=== PATIENT | male | born 1945 | race Caucasian/White ===

== ENCOUNTER 2017-08-24 17:26 | Emergency (ER) | payer OTHER ==
[2017-08-24 17:32] VITALS: TEMP 97.6; BMI 29.8
--- NOTE | 2017-08-24 18:25 | PDOC ---
History of Present Illness - General Chief Complaint: Weakness Stated Complaint: WEAKNESS & BILATERAL LEG SWELLING Time Seen by Provider: 08/24/17 18:19 - History of Present Illness Initial Comments: 08/24/17 18:38 The patient is a 72 year old male with a history of CAD and prostate ca who presents for evaluation of fatigue and lower extremity swelling. The patient is accompanied by family who assist in providing the history. They note worsening lower extremity swelling and fatigue over the past 1 week prompting the patient's presentation to the ED for further evaluation. The patient is visiting from out of town and does not follow with a primary physician. The patient presented for similar symptoms 2 years ago and was medically cleared at that time and discharged home. They otherwise denies fevers, chills, SOB, chest pain, nausea, vomiting, abdominal pain, or changes with urination or bowel movements. Past History - Past Medical History Allergies/Adverse Reactions: Allergies Allergy/AdvReac Type Severity Reaction Status Date / Time No Known Allergies Allergy Verified 08/24/17 17:29 Home Medications: Ambulatory Orders NK [No Known Home Medication] 08/24/17 Cancer: Yes (PROSTATE) Cardiac Disorders: Yes COPD: No - Surgical History Appendectomy: Yes Cholecystectomy: Yes - Suicide/Smoking/Psychosocial Hx Smoking History: Never smoked Have you smoked in the past 12 months: No Hx Alcohol Use: No Substance Use Type: None Review of Systems - Review of Systems Comments:: 08/24/17 18:53 Constitutional: Fatigue. No fevers, chills, malaise HEENT: No Rhinorrhea, nasal congestion, visual changes Cardiovascular: No chest pain, syncope, palpitations, lightheadedness Respiratory: No Cough, SOB, Hemoptysis, Gastrointestinal: No Abdominal pain, Nausea, Vomiting, Constipation, Diarrhea, Melena Genitourinary: No Dysuria, Frequency, Urgency, Hesitancy, Hematuria, Flank pain Musculoskeletal: No Myalgia, arthralgia Skin: Lower Extremity Swelling. No rashes, itching, bruising, pallor Neurologic: No Headache, Dizziness, Numbness, Weakness, or Tingling Psychiatric: No Hallucinations. No SI or HI *Physical Exam - Vital Signs Last Vital Signs Temp Pulse Resp BP Pulse Ox 97.6 F 75 19 116/78 100 08/24/17 17:30 08/24/17 17:30 08/24/17 17:30 08/24/17 17:30 08/24/17 17:30 - Physical Exam Comments: 08/24/17 18:53 General Appearance: Nourished. No Apparent Distress HEENT: EOMI, CONOR. No Pharyngeal Erythema, Tonsillar Exudate, Tonsillar Erythema Neck: No Cervical Lymphadenopathy Respiratory/Chest: Lungs Clear, Normal Breath Sounds. No Crackles, Rales, Rhonchi, Wheezing Cardiovascular: Regular Rhythm, Regular Rate. No Murmur, Gallops, Rubs Gastrointestinal/Abdominal: Normal Bowel Sounds, Soft. No Guarding, Rebound, Tenderness Musculoskeletal: No CVA Tenderness Extremity: 2+ pitting edema bilaterally on exam. Normal Capillary Refill Integumentary: Normal Color, Dry, Warm Neurologic: Fully Oriented, Alert, Normal Mood/Affect, Normal Response, Heart Score/ECG Review #1 ECG reviewed & interpreted by me at: 20:43 General ECG Interpretation: Sinus Rhythm, Normal Rate, Normal Intervals, No acute ischemic changes ED Treatment Course - LABORATORY CBC & Chemistry Diagram: 08/24/17 18:31 08/24/17 18:31 - RADIOLOGY Radiology Studies Ordered: Category Date Time Status DUPLEX VASCUL US-2LEGS [US] Stat Ultrasound 08/24/17 18:25 Ordered Medical Decision Making - Medical Decision Making 08/24/17 19:05 The patient is a 72 year old male with a history of CAD and prostate ca who presents for evaluation of fatigue and lower extremity swelling. Differential includes but is not limited to: DVT, Infectious, Metabolic Derangement. Given the patient's history, we will obtain a cbc, cmp, ekg, DVT US to evaluate further. We will continue to monitor and reassess while here in the ED. 08/24/17 20:42 CBC, CMP are unremarkable. DVT US is unremarkable. We are comfortable discharging the patient home at this time with primary care provider follow up. The patient's symptoms are likely due to dependent edema. We discussed the results, plan, and return precautions with the patient and his family who voiced understanding and is agreeable with the plan. *DC/Admit/Observation/Transfer Diagnosis at time of Disposition: Edema Qualifiers: Edema type: unspecified Qualified Code(s): R60.9 - Edema, unspecified - Discharge Dispostion Disposition: HOME Condition at time of disposition: Stable Decision to Admit order: No - Referrals Referrals: Marvin,Rocael, MD [Staff Physician] - - Patient Instructions Printed Discharge Instructions: DI for Dependent Edema Additional Instructions: Please return to the ER if you experience concerning or worsening symptoms including worsening fatigue, pain, or fevers. Your lab results and imagine studies were normal here in the ER. It is important that you call to schedule a follow up appointment with your primary care provider within 2-3 days to discuss you ER visit and further management of your symptoms. - Post Discharge Activity
[2017-08-24 18:40] LABS: BASO % 0.9 % (0-2.0); EOS % 6.6 % (0-4.5); HEMATOCRIT 39.1 % (35.4-49); HEMOGLOBIN 13.1 GM/dL (11.7-16.9); LYMPH % 31.9 % (8-40); MCH 29.5 pg (25.7-33.7); MCHC 33.4 g/dl (32.0-35.9); MEAN CELL VOLUME 88.4 fl (80-96); MEAN PLT VOLUME 8.9 fl (7.5-11.1); MONO % 7.4 % (3.8-10.2); NEUT % 53.2 % (42.8-82.8); PLATELET COUNT 283 K/MM3 (134-434); RBC 4.43 M/mm3 (4.00-5.60); RDW 14.1 % (11.9-15.9); WHITE BLOOD COUNT 6.5 K/mm3 (4.0-10.0)
[2017-08-24 19:02] LABS: ALBUMIN 3.6 g/dl (3.4-5.0); ANION GAP 5 (8-16); BLOOD UREA NITROGEN 16 mg/dL (7-18); CALCIUM 8.4 mg/dL (8.5-10.1); CHLORIDE 110 mmol/L (98-107); CO2 29 mmol/L (21-32); GLUCOSE,RANDOM 122 mg/dL (74-106); SGOT/AST 12 U/L (15-37); SGPT/ALT 20 U/L (12-78); SODIUM 144 mmol/L (136-145)
[2017-08-24 19:03] LABS: ALK PHOS 88 U/L (45-117); BILIRUBIN,TOTAL 0.5 mg/dL (0.2-1.0); TOT PROT 6.3 g/dl (6.4-8.2)
--- NOTE | 2017-08-24 19:08 | PDOC ---
Attending Attestation - [facility] HPI: 08/24/17 19:08 The patient is a 72 year old male with past medical history of HTN (denies taking any medication), prostate cancer presents to the emergency department accompanied by a family member with left foot swelling. As per the family member , the patient is visit, flew in 2 week ago on a 3 hour flight. She reports the patients been experiencing left foot swelling with associated symptoms of fatigue and weakness for the past 2 days. The patient has a fluid collection on his right elbow, no pain reported. The patient has a similar incident 2015 and was seen at the emergency department, results show L. lateral malleolus swelling , no errethma. Reports show the patient had a cardiac cath 2015, the patient was seen in October, reports show that the patient states he stopped taking his medication May of 2015. Denies any surgery to the lower extremities. Denies any history of broken leg or injury to the foot. Denies fever, chills, headache or cough. Denies chest pain or sob. Denies abdominal pain, right lower extremity pain. Denies nausea or vomiting. Denies diarrhea or constipation. Denies dysuria, hematuria, frequency or urgency to urinate. Allergies: NKDA Social history: None reported Surgical history: Cardiac cath (2015) Cholecystectomy and Appendectomy PCP: None reported. - Physicial Exam PE: 08/24/17 19:08 GENERAL: Well developed, well nourished. Awake and alert. No acute distress. HEENT: Normocephalic, atraumatic. PERRLA, EOMI. No conjunctival pallor. Sclera are non- icteric. Moist mucous membranes. Oropharynx is clear. NECK: No bruits or JVD appreciated Supple. Full ROM. No JVD. Carotid pulses 2+ and symmetric, without bruits. No thyromegaly. No lymphadenopathy. CARDIOVASCULAR: Regular rate and rhythm. No murmurs, rubs, or gallops. Distal pulses are 2+ and symmetric. PULMONARY: No rales. No evidence of respiratory distress. Lungs clear to auscultation bilaterally. No wheezing, rales or rhonchi. ABDOMINAL: Soft. Non-tender. Non-distended. No rebound or guarding. No organomegaly. Normoactive bowel sounds. MUSCULOSKELETAL Normal range of motion at all joints. No bony deformities or tenderness. No CVA tenderness. EXTREMITIES: (+) Left leg pedial edema, non pitting edema. Left malleolus swelling, no erythema, no redness or deformities noted. (+) Right elbow olecranon bursitis, soft doughy fluid collection, non tender, non erythematous, Nonseptic. No cyanosis. No clubbing. No calf tenderness. SKIN: Warm and dry. Normal capillary refill. No rashes. No jaundice. NEUROLOGICAL: Alert, awake, appropriate. Cranial nerves 2-12 intact. No deficits to light touch and temperature in face, upper extremities and lower extremities. No motor deficits in the in face, upper extremities and lower extremities. Normoreflexic in the upper and lower extremities. Normal speech. Toes are down- going bilaterally. Gait is normal without ataxia. PSYCHIATRIC: Cooperative. Good eye contact. Appropriate mood and affect. The patient has a similar physical exam as 2016 visit with the new add on of olecranon bursitis. - Medical Decision Making 08/24/17 19:09 Documentation prepared by Monica Josue, acting as medical records coordinator for Renee Rivera MD. 08/24/17 20:42 Vent. rate: 51 bpm [place] interval: 202 ms QRS duration: 98 ms No EKG changes compared to the 2016 recorded EKG. <Monica Josue - Last Filed: 08/24/17 20:42> - Resident Resident Name: Brian Larsen - ED Attending Attestation I have performed the following: I have examined & evaluated the patient, The case was reviewed & discussed with the resident, I agree w/resident's findings & plan, Exceptions are as noted - Medical Decision Making duplex doppler is negative for dvt ekg is unchanged from previous ekg pt discharged home 08/24/17 22:35 <Renee Rivera - Last Filed: 08/24/17 22:36>
[2017-08-24 20:58] VITALS: BP 150/84; PULSE 56
--- NOTE | 2017-08-25 08:42 | EKG ---
Test Reason : Blood Pressure : / mmHG Vent. Rate : 051 BPM Atrial Rate : 051 BPM P-R Int : 202 ms QRS Dur : 098 ms QT Int : 478 ms P-R-T Axes : 049 005 034 degrees QTc Int : 440 ms SINUS BRADYCARDIA WITH 1ST DEGREE A-V BLOCK OTHERWISE NORMAL ECG WHEN COMPARED WITH ECG OF 09-NOV-2015 12:39, NO SIGNIFICANT CHANGE WAS FOUND NOTE INCREASE IN THE GA INTERVAL Confirmed by UMU MARVIN, SAMANTHA ([id number]) on 08/25/2017 8:42:24 AM Referred By: Confirmed By:SAMANTHA SANZ MD
== END 2017-08-24 20:58 | disposition home or self-care (01) ==
LOC: JER 17:26
DX: R60.0 Localized edema (principal); I25.10 Atherosclerotic heart disease of native coronary artery without angina pectoris; R53.83 Other fatigue; Z85.46 Personal history of malignant neoplasm of prostate
CPT/HCPCS: 36415; 80053; 85025; 93005; 93010; 93970-TC; 99283-25